=== PATIENT | female | born 1990 ===

== ENCOUNTER 2023-01-21 14:50 | Emergency (ER) | payer SELFPAY ==
[2023-01-21] MEDS ORDERED: DOXY100T2 PO (16:55)
== END 2023-01-21 15:34 | disposition left against medical advice (07) ==
LOC: EDUNIT# 14:50 → ER FS 14:52
DX: Z20.2 Contact with and (suspected) exposure to infections with a predominantly sexual mode of transmission (principal)

== ENCOUNTER 2023-01-21 15:44 | Emergency (ER) | payer SELFPAY ==
[~2023-01-21] VITALS: Ht 162.6 cm; Wt 54.4 kg
--- NOTE | 2023-01-21 15:51 | ED GU-Female ---
General Chief Complaint: General Problems/Pain Stated Complaint: FREQ URINATION, PAIN WHEN URINATED,CRAMP, SHARP PN History of Present Illness Date Seen by Provider: Jan 21, 2023 Time Seen by Provider: 15:51 Initial Comments 32-year-old female presents with urinary frequency, burning and discomfort when she urinates. Some mild lower abdominal cramping. She denies any vaginal d ischarge. Patient reports that the symptoms of been gone for a couple weeks. She also presents because she was told that she may have potentially been exposed to chlamydia but is unsure I would like to have that checked. She denies any fevers or chills. She denies any nausea or vomiting. Allergies and Home Medications Allergies Coded Allergies: No Known Drug Allergies (Unverified , 01/21/23) Patient Home Medication List Home Medication List Reviewed: Yes Review of Systems Review of Systems Constitutional: No chills, No fever EENTM: no symptoms reported Respiratory: no symptoms reported Cardiovascular: no symptoms reported Gastrointestinal: no symptoms reported Genitourinary: see HPI, burning, dysuria, frequency, incontinence Musculoskeletal: no symptoms reported Skin: no symptoms reported Psychiatric/Neurological: No Symptoms Reported Physical Exam Vital Signs Vital Signs - First Documented 01/21/23 15:50 Temp 36.8 Pulse 106 Resp 18 B/P (MAP) 126/79 (95) O2 Delivery Room Air Capillary Refill : Height, Weight, BMI Height: '" Weight: lbs. oz. kg; BMI Method: General Appearance: WD/WN, no apparent distress Cardiovascular: normal peripheral pulses, regular rate, rhythm Respiratory: lungs clear, normal breath sounds Gastrointestinal: non tender, soft Extremities: normal range of motion Neurologic/Psychiatric: alert, normal mood/affect, oriented x 3 Skin: normal color, warm/dry Progress/Results/Core Measures Suspected Sepsis SIRS Temperature: Pulse: Respiratory Rate: Blood Pressure / Mean: Results/Orders Lab Results Laboratory Tests Test 01/21/23 16:19 Range/Units Urine Color YELLOW Urine Clarity CLOUDY Urine pH 6.0 5-9 Urine Specific Stanton >=1.030 1.016-1.022 Urine Protein NEGATIVE NEGATIVE Urine Glucose (UA) NEGATIVE NEGATIVE Urine Ketones NEGATIVE NEGATIVE Urine Nitrite POSITIVE H NEGATIVE Urine Bilirubin NEGATIVE NEGATIVE Urine Urobilinogen 0.2 < = 1.0 MG/DL Urine Leukocyte Esterase 1+ H NEGATIVE Urine RBC (Auto) 3+ H NEGATIVE Urine RBC RARE /HPF Urine WBC 10-25 H /HPF Urine Squamous Epithelial Cells 2-5 /HPF Urine Crystals NONE /LPF Urine Bacteria LARGE H /HPF Urine Casts NONE /LPF Urine Mucus SMALL H /LPF Urine Culture Indicated YES Urine Test NEGATIVE NEGATIVE My Orders Orders - HOUSEPATR L DO Hcg,Qualitative Urine (01/21/23 15:55) Ua Culture If Indicated (01/21/23 15:55) Neis Domenico Dna Urine Test (01/21/23 15:55) Chlamydia Trachomatis Urine (01/21/23 15:55) Urine Culture (01/21/23 16:19) Ceftriaxone (Rocephin) (01/21/23 16:45) Lidocaine 1% Inj 20 Ml (Xylocaine 1% Inj (01/21/23 16:45) Vital Signs/I&O 01/21/23 15:50 Temp 36.8 Pulse 106 Resp 18 B/P (MAP) 126/79 (95) O2 Delivery Room Air Capillary Refill : Progress Note : Progress Note Patient's urine was ordered, reviewed and interpreted by me. She does have urine is consistent with urinary tract infection. Because of her concern for potential STD exposure and test pending we will treat her with Rocephin. I will start her on doxycycline as that we will treat both urinary tract infection and potential chlamydia gonorrhea. With her concern for exposure to chlamydia. Patient stable and discharged home Departure Impression Primary Impression: Urinary tract infection Qualified Codes: N30.01 - Acute cystitis with hematuria Additional Impression: Possible exposure to STD Disposition: HOME, SELF-CARE Condition: Stable Departure-Patient Inst. Referrals: NO,LOCAL PHYSICIAN (PCP/Family) Primary Care Physician Patient Instructions: Sexually-Transmitted Diseases (DC), Urinary Tract Infection, Adult (DC) Add. Discharge Instructions: Drink plenty of fluids, you may use Azo for cramping and spasm All discharge instructions reviewed with patient and/or family. Voiced understanding. Scripts Doxycycline Hyclate (Doxycycline Hyclate) 100 Mg Tablet 100 MG PO BID, #20 TAB 0 Refills Prov: GUERO HOUSEVOR L DO 01/21/23 HOUSEGUEROCALI L DO Jan 21, 2023 15:51
[2023-01-21 16:26] LABS: BILIRUBIN,URINE NEGATIVE (NEGATIVE); CLARITY,URINE CLOUDY; COLOR,URINE YELLOW; GLUCOSE, URINE (UA) NEGATIVE (NEGATIVE); KETONES,URINE NEGATIVE (NEGATIVE); NITRITE,URINE POSITIVE (NEGATIVE); PROTEIN,URINE NEGATIVE (NEGATIVE)
[2023-01-21 16:34] LABS: BACTERIA,URINE LARGE /HPF; LEUKOCYTE ESTERASE ,URINE 1+ (NEGATIVE); RBC,URINE RARE /HPF
[2023-01-21] MEDS ORDERED: LIDOCAINE 1% INJ 20 ML VIAL INJ ONE (16:45)
[2023-01-21] MEDS ORDERED: cefTRIAXone 1,000 MG VIAL IM ONE (16:45)
[2023-01-21] MEDS ORDERED: DOXY100T2 PO (16:55)
[2023-01-21 16:57] VITALS: BP 126/79
== END 2023-01-21 16:58 | disposition home or self-care (01) ==
LOC: EDUNIT# 15:44 → ER FS 15:48
DX: N39.0 Urinary tract infection, site not specified (principal); Z20.2 Contact with and (suspected) exposure to infections with a predominantly sexual mode of transmission; Z28.310 Unvaccinated for COVID-19
CPT/HCPCS: 36415; 81000; 84703; 87077; 87088; 87491; 87591; 99284